=== PATIENT | female | born 1995 | race Caucasian/White ===

== ENCOUNTER 2023-06-26 13:08 | Emergency (ER) | payer MEDICAID ==
--- NOTE | 2023-06-26 13:23 | ED Physician Documentation ---
PD HPI FEMALE - Stated complaint Stated Complaint: N/V,MIGRAINES - Chief complaint Chief Complaint: Abd Pain - History obtained from History obtained from: Patient - History of Present Illness Timing - onset: How many weeks ago (The patient has had moved down normal intermittent cramping associated with fairly consistent nausea and only intermittent vomiting. Her last menstrual period was 8 and half weeks ago. She has had positive home test. Upcoming [facility] appointment not till mid July. No fever, focal deficit.) Timing - duration: Weeks Timing - details: Gradual onset, Still present Associated symptoms: Vaginal discharge, Urinary frequency. No: Fever Similar symptoms before: Has not had sx before Review of Systems Constitutional: denies: Fever, Chills : reports: Discharge (mild), Now EGA (8-9 weeks). denies: Dysuria, Frequency Neurologic: denies: Near syncope PD PAST MEDICAL HISTORY - Past Medical History Past Medical History: Yes Cardiovascular: None Respiratory: None Neuro: None Endocrine/Autoimmune: None Psych: Anxiety - Past Surgical History Past Surgical History: No - Present Medications Home Medications: Ambulatory Orders Medication Instructions Recorded Confirmed Cetirizine [ZyrTEC] 10 mg PO BID #40 tablet 06/26/23 Famotidine [Pepcid] 20 mg PO DAILY #30 tablet 06/26/23 Magnesium Oxide [Magnesium] 400 mg PO DAILY 06/26/23 06/26/23 Ondansetron Odt [Zofran] 4 mg TL Q6H PRN #20 tablet 06/26/23 No122/Iron/Folic Acid 1 each PO DAILY 06/26/23 06/26/23 [ Multi Tablet] Pyridoxine HCl (Vitamin B6) 50 mg PO BID #60 tab 06/26/23 [Vitamin B6] Rizatriptan Benzoate [Rizatriptan] 5 mg PO Q6H PRN #10 tablet 06/26/23 dexAMETHasone [Decadron] 4 mg PO DAILY #7 tablet 06/26/23 metroNIDAZOLE [Flagyl] 500 mg PO BID 7 Days #14 tablet 06/26/23 - Allergies Allergies/Adverse Reactions: Allergies Allergy/AdvReac Type Severity Reaction Status Date / Time amoxicillin Allergy Rash Verified 06/26/23 13:18 Penicillins Allergy Rash Verified 06/26/23 13:18 - Social History Does the pt smoke?: No Smoking Status: Never smoker Does the pt drink ETOH?: No Does the pt have substance abuse?: No - Immunizations Immunizations are current?: Yes PD ED PE NORMAL - Vitals Vital signs reviewed: Yes - General General: Alert and oriented X 3, No acute distress, Well developed/nourished - HEENT HEENT: Pharynx benign - Neck Neck: Supple, no meningeal sign, No adenopathy - Cardiac Cardiac: RRR, No murmur - Respiratory Respiratory: No respiratory distress, Clear bilaterally - Abdomen Abdomen: Soft, Non tender - Female Female : Deferred - Back Back: No CVA TTP - Derm Derm: Normal color, Warm and dry - Extremities Extremities: No edema, No calf tenderness / cord - Neuro Neuro: Alert and oriented X 3, No motor deficit, Normal speech Results - Vitals Vitals: Vital Signs - 24 hr 06/26/23 06/26/23 06/26/23 13:12 13:17 15:17 Temperature 36.4 C L Heart Rate 72 72 73 Respiratory 15 15 17 Rate Blood Pressure 130/67 130/67 122/87 H O2 Saturation 100 100 98 06/26/23 16:01 Temperature 36.6 C Heart Rate 75 Respiratory 16 Rate Blood Pressure 143/78 H O2 Saturation 99 Oxygen O2 Source Room air - Labs Labs: Laboratory Tests 06/26/23 06/26/23 06/26/23 14:09 14:09 14:09 WBC 8.5 RBC 4.57 Hgb 13.5 Hct 40.3 MCV 88.2 MCH 29.5 MCHC 33.5 RDW 11.8 L Plt Count 285 MPV 8.6 Neut # (Auto) 5.2 Lymph # (Auto) 2.4 Hale # (Auto) 0.7 Eos # (Auto) 0.2 Baso # (Auto) 0.0 Absolute Nucleated RBC 0.00 Nucleated RBC % 0.0 Sodium 134 L Potassium 4.1 Chloride 103 Carbon Dioxide 26 Anion Gap 5.0 L BUN 8 Creatinine 0.5 L Estimated GFR (MDRD) 149 Glucose 73 L Calcium 9.9 Magnesium 1.8 Total Bilirubin 0.3 AST 14 ALT 11 Alkaline Phosphatase 39 L Total Protein 7.6 Albumin 4.4 Globulin 3.2 Albumin/Globulin Ratio 1.4 Lipase 51 TSH 1.07 Urine Color Urine Clarity Urine pH Ur Specific [place] Urine Protein Urine Glucose (UA) Urine Ketones Urine Occult Blood Urine Nitrite Urine Bilirubin Urine Urobilinogen Ur Leukocyte Esterase Urine RBC Urine WBC Ur Squamous Epith Cells Urine Bacteria Ur Microscopic Review Urine Culture Comments C. glabrata (PCR) NEGATIVE C. krusei (PCR) NEGATIVE Ifeoma species DNA NEGATIVE Chlam trachomat DNA PCR HIV 1&2 Antibody Rapid N.gonorrhoeae DNA (PCR) T. vaginalis (PCR) NEGATIVE Bact Vaginosis (PCR) POSITIVE A Blood Type 06/26/23 06/26/23 06/26/23 14:09 14:09 14:09 WBC RBC Hgb Hct MCV MCH MCHC RDW Plt Count MPV Neut # (Auto) Lymph # (Auto) Hale # (Auto) Eos # (Auto) Baso # (Auto) Absolute Nucleated RBC Nucleated RBC % Sodium Potassium Chloride Carbon Dioxide Anion Gap BUN Creatinine Estimated GFR (MDRD) Glucose Calcium Magnesium Total Bilirubin AST ALT Alkaline Phosphatase Total Protein Albumin Globulin Albumin/Globulin Ratio Lipase TSH Urine Color YELLOW Urine Clarity CLEAR Urine pH 6.0 Ur Specific [place] <=1.005 Urine Protein NEGATIVE Urine Glucose (UA) NEGATIVE Urine Ketones NEGATIVE Urine Occult Blood NEGATIVE Urine Nitrite NEGATIVE Urine Bilirubin NEGATIVE Urine Urobilinogen 0.2 (NORMAL) Ur Leukocyte Esterase TRACE H Urine RBC 0-5 Urine WBC 0-3 Ur Squamous Epith Cells RARE Squamous Urine Bacteria Rare Ur Microscopic Review INDICATED Urine Culture Comments INDICATED C. glabrata (PCR) C. krusei (PCR) Ifeoma species DNA Chlam trachomat DNA PCR HIV 1&2 Antibody Rapid NEGATIVE N.gonorrhoeae DNA (PCR) T. vaginalis (PCR) Bact Vaginosis (PCR) Blood Type AB POSITIVE 06/26/23 14:09 WBC RBC Hgb Hct MCV MCH MCHC RDW Plt Count MPV Neut # (Auto) Lymph # (Auto) Hale # (Auto) Eos # (Auto) Baso # (Auto) Absolute Nucleated RBC Nucleated RBC % Sodium Potassium Chloride Carbon Dioxide Anion Gap BUN Creatinine Estimated GFR (MDRD) Glucose Calcium Magnesium Total Bilirubin AST ALT Alkaline Phosphatase Total Protein Albumin Globulin Albumin/Globulin Ratio Lipase TSH Urine Color Urine Clarity Urine pH Ur Specific [place] Urine Protein Urine Glucose (UA) Urine Ketones Urine Occult Blood Urine Nitrite Urine Bilirubin Urine Urobilinogen Ur Leukocyte Esterase Urine RBC Urine WBC Ur Squamous Epith Cells Urine Bacteria Ur Microscopic Review Urine Culture Comments C. glabrata (PCR) C. krusei (PCR) Ifeoma species DNA Chlam trachomat DNA PCR NEGATIVE HIV 1&2 Antibody Rapid N.gonorrhoeae DNA (PCR) NEGATIVE T. vaginalis (PCR) TNP Bact Vaginosis (PCR) Blood Type PD Medical Decision Making - ED course Complexity details: reviewed results (normal single IUP 9w2d with good FHR. BV screen subsequently came back after her d/c and is positive for BV> I will call in script (Flagyl 500 bid x 7 dyas in per UpToDate).), re-evaluated patient, considered differential (early about 8-9 weeks EGA by dates. Having lots of nausea for few weeks. Malaise. Lower abd cramping with some mild vag d/c. Much increased frequency of migraines to daily the past 1-2 weeks. ), d/w patient ED course: We can evaluate the patient to ensure a louie and no ectopic or such to account for excessive nausea and vomiting with . She has not been on any medication for this as yet. We can prescribe vitamin B6 and cetirizine daily with added ondansetron when needed. Given the persistence of the symptoms, a cog would also suggest a short course of steroids. Regarding her more frequent migraines, they had been associated with her menstrual periods previously so hormonal influence is reasonable at this point. Hopefully they will taper down if she gets more into the second trimester. But for now we can treat with medication again for the nausea. When she does get a migraine headache itself, to use rizatriptan. I did verify in up-to-date that this is a common approach in . Short course of steroids here will be beneficial to try to prevent recurrences as well. She can use Tylenol every 4-6 hours if needed for pains as well. I could not find the pharmacy in electronic database so printed scripts and she will need to bring to preferred pharmacy. Departure - Departure Disposition: 01 Home, Self Care Clinical Impression: , Nausea and vomiting during , Migraines, Status migrainosus, Bacterial vaginitis Condition: Stable Record reviewed to determine appropriate education?: Yes Instructions: ED Preg Established Normal Sxs Follow-Up: DEVENDRA FARRELL PA-C [Primary Care Provider] - Prescriptions: dexAMETHasone [Decadron] 4 mg PO DAILY #7 tablet metroNIDAZOLE [Flagyl] 500 mg PO BID 7 Days #14 tablet Famotidine [Pepcid] 20 mg PO DAILY #30 tablet Rizatriptan Benzoate [Rizatriptan] 5 mg PO Q6H PRN #10 tablet PRN Reason: Migraine Pyridoxine HCl (Vitamin B6) [Vitamin B6] 50 mg PO BID #60 tab Ondansetron Odt [Zofran] 4 mg TL Q6H PRN #20 tablet PRN Reason: Nausea / Vomiting Cetirizine [ZyrTEC] 10 mg PO BID #40 tablet Comments: Regarding your , we can help with the nausea and vomiting with a c ombination of vitamin B6 twice daily and cetirizine antihistamine twice daily. This is a common recommendation from [employer]. Given the degree of symptoms have been persistent, also recommended would be steroid daily for the next week or so. In addition you can then use ondansetron every 6 hours if needed for nausea. Regarding the headache, hopefully the steroid dosing will help reduce the chance of that persisting. Also you can use Tylenol 500 to 650 mg every 4-6 hours if needed for pains.. In the short-term adding in ibuprofen or naproxen are also okay in up through at least 20 weeks. Tylenol is good through all of . We did do testing for any signs of bacterial vaginitis or bladder infection. There was some white cells and a couple of bacteria in your urine but not enough to really suggest a true UTI at this point. The urine culture will be more exacting and will result in a couple of days. Will also have the vaginitis test results later today will call you if they are positive. Also famotidine for reflux/heartburn symptoms. These are all okay in of course. Follow-up with [facility] in July as planned. I could not find the work assignment pharmacy in my database to transmitted electronically right now. I printed out the prescription for you and you will have to bring them there. Forms: PCP List Discharge Date/Time: 06/26/23 16:02
[2023-06-26] MEDS: ONDANSETRON ODT 4 MG TABLET TL STA (14:03)
[2023-06-26] MEDS: dexAMETHasone 4 MG TABLET PO STA (14:03)
[2023-06-26] MEDS: ACETAMINOPHEN 500 MG TABLET PO STA (14:03)
[2023-06-26 14:19] LABS: BASOPHILS % (AUTO) 0.4 %; EOSINOPHILS # (AUTO) 0.2 10^3/uL (0.0-0.7); EOSINOPHILS % (AUTO) 1.9 %; HCT - HEMATOCRIT 40.3 % (37.0-47.0); HGB - HEMOGLOBIN 13.5 g/dL (12.0-16.0); LYMPHOCYTES # (AUTO) 2.4 10^3/uL (1.5-3.5); LYMPHOCYTES % (AUTO) 28.3 %; MEAN CORPUSCULAR HEMOGLOBIN 29.5 pg (27.0-31.0); MEAN CORPUSCULAR HGB CONC 33.5 g/dL (32.0-36.0); MEAN CORPUSCULAR VOLUME 88.2 fL (81.0-99.0); MEAN PLATELET VOLUME 8.6 fL (7.9-10.8); MONOCYTES # (AUTO) 0.7 10^3/uL (0.0-1.0); MONOCYTES % (AUTO) 7.8 %; NEUTROPHILS # (AUTO) 5.2 10^3/uL (1.5-6.6); NEUTROPHILS % (AUTO) 61.4 %; PLT - PLATELET COUNT 285 10^3/uL (130-450); RED BLOOD COUNT 4.57 10^6/uL (4.20-5.40); RED CELL DISTRIBUTION WIDTH 11.8 % (12.0-15.0); WHITE BLOOD COUNT 8.5 x10^3/uL (4.8-10.8)
[2023-06-26 14:21] LABS: BILIRUBIN,URINE NEGATIVE (NEGATIVE); CLARITY,URINE CLEAR (CLEAR); GLUCOSE, URINE (UA) NEGATIVE (NEGATIVE); KETONES,URINE (UA) NEGATIVE (NEGATIVE); LEUKOCYTE ESTERASE, URINE TRACE (NEGATIVE); NITRITE,URINE NEGATIVE (NEGATIVE); OCCULT BLOOD,URINE NEGATIVE (NEGATIVE); PROTEIN,URINE NEGATIVE (NEGATIVE); UROBILINOGEN,URINE 0.2 (NORMAL) E.U./dL (NORMAL)
[2023-06-26 14:28] LABS: BACTERIA,URINE Rare /HPF (None Seen); MAGNESIUM 1.8 mg/dL (1.7-2.3); RBC,URINE 0-5 /HPF (0-5); SQUAMOUS EPITHELIAL CELL,UR RARE Squamous (<= Few); WBC,URINE 0-3 /HPF (0-5)
[2023-06-26 14:34] LABS: ALBUMIN 4.4 g/dL (3.2-5.5); ALBUMIN/GLOBULIN RATIO 1.4 (1.0-2.2); BILIRUBIN,TOTAL 0.3 mg/dL (0.2-1.0); CALCIUM 9.9 mg/dL (8.5-10.3); CREATININE 0.5 mg/dL (0.6-1.3); POTASSIUM 4.1 mmol/L (3.5-4.5); TOTAL PROTEIN 7.6 g/dL (6.4-8.9)
[2023-06-26 14:44] LABS: HIV RAPID SCREEN NEGATIVE (NEGATIVE)
[2023-06-26 14:48] LABS: THYROID STIMULATING HORMONE 1.07 uIU/mL (0.34-5.60)
[2023-06-26 16:07] VITALS: BP 143/78; O2SAT 99
--- NOTE | 2023-06-26 16:32 | Ultrasound Report ---
PROCEDURE: OB 1st Trimester INDICATIONS: lower abd cramping; preg 8 wk ega OUTSIDE/PRIOR DATING DATA: Last menstrual period (LMP): 04/20/2023. LMP-based estimated date of delivery (CARLOS): 01/25/2024. First dating scan (date and location): 06/26/2023. Estimated date of delivery (CARLOS) from first dating scan: 01/27/2024. TECHNIQUE: Real-time scanning was performed of the fetus and maternal pelvic organs, with image documentation. COMPARISON: None. FINDINGS: Intrauterine gestational sac present. Embryo: Single live intrauterine tube gestational age measuring 9 weeks 2 days. [place]-rump length me asures 2.6 cm. Heart rate: 164 bpm. Other: No perigestational fluid collection. Measurement variability in dating: +/- 4 weeks by LMP, +/- 7 days by mean sac diameter (use before 6 weeks gestation if crown-rump length not able to be measured), +/- 5 days by crown-rump length (6-12 weeks gestation). Maternal organs: Ovaries appear within normal limits. IMPRESSION: Single live intrauterine with gestational age of 9 weeks 2 days. Reviewed by: Amita Lizama MD on 06/26/2023 4:31 PM PDT Approved by: Amita Lizama MD on 06/26/2023 4:31 PM PDT Station ID: [id number]
[2023-06-26 18:14] LABS: CHLAMYDIA TRACHOMATIS DNA NEGATIVE (NEGATIVE); NEISSERIA GONORRHOEAE DNA NEGATIVE (NEGATIVE)
[2023-06-26 22:55] LABS: BACTERIAL VAGINOSIS DNA POSITIVE (NEGATIVE); CANDIDA GLABRATA DNA NEGATIVE (NEGATIVE); CANDIDA GROUP DNA NEGATIVE (NEGATIVE); CANDIDA KRUSEI DNA NEGATIVE (NEGATIVE); TRICHOMONAS VAGINALIS DNA NEGATIVE (NEGATIVE)
[2023-06-27 06:12] LABS: HBsAG SCREEN Negative (Negative)
--- NOTE | 2023-06-27 14:34 | ED Physician Documentation ---
ED Addendum - Addendum Addendum: 06/27/23 14:33 Phoned script for Flagyl to [facility] in [place] [address]. Called and updated pt of results and that Rx would be at [facility]. She was bringing the other to there as well (the printed ones from yeserday).
[2023-06-27 21:14] LABS: TREPONEMA PALLIDUM ANTIBODIES Non Reactive (Non Reactive)
== END 2023-06-26 16:02 | disposition home or self-care (01) ==
LOC: ED 13:08
DX: O21.0 Mild hyperemesis gravidarum (principal); Z3A.09 9 weeks gestation of pregnancy; O23.591 Infection of other part of genital tract in pregnancy, first trimester; B96.89 Other specified bacterial agents as the cause of diseases classified elsewhere; O26.891 Other specified pregnancy related conditions, first trimester; G43.901 Migraine, unspecified, not intractable, with status migrainosus; Z79.899 Other long term (current) drug therapy
CPT/HCPCS: 36415; 80053; 81001; 81003; 81514; 83690; 83735; 84443; 85025; 86703; 86780; 86900; 86901; 87086; 87340; 87491; 87591; 87661; 99284